=== PATIENT | female | born 2000 | race Caucasian/White ===

== ENCOUNTER 2021-11-12 10:07 | Emergency (ER) | payer MEDICAID, SELFPAY ==
[2021-11-12 12:05] VITALS: BP 116/52; PULSE 71; RESP 18; TEMP 36.2; O2SAT 100; BMI 25.7
== END 2021-11-12 19:00 | disposition left against medical advice (07) ==
PROVIDERS: Emergency Provider Emergency Medicine
DX: S99.919A Unspecified injury of unspecified ankle, initial encounter (principal); X50.1XXA Overexertion from prolonged static or awkward postures, initial encounter; Y93.9 Activity, unspecified; Y92.410 Unspecified street and highway as the place of occurrence of the external cause; Y99.9 Unspecified external cause status
CPT/HCPCS: 99281; 99282